=== PATIENT | male | born 1965 | race Caucasian/White ===

== ENCOUNTER 2024-07-19 08:58 | Emergency (ER) | payer MEDICAID, SELFPAY ==
[2024-07-19] VITALS (19 sets, daily range): BP systolic 114–173; BP diastolic 79–114; PULSE 84–101; RESP 12–25; TEMP 36.2–36.7; O2SAT 90–100; BMI 32.5
--- NOTE | 2024-07-19 09:42 | EKG_ITS ---
[facility] Test Date: 2024-07-19 Pat Name: LEYLA BRUNNER Department: Room: - Gender: Male Single Resource Boss: : 1965 Requested By: Vivek Hagan Order Number: [id number] Reading MD: Vivek Hagan Measurements Intervals [place] Rate: 99 P: 63 CO: 175 QRS: -57 QRSD: 114 T: 76 QT: 346 QTc: 444 Interpretive Statements SINUS RHYTHM WITH FREQUENT VENTRICULAR PREMATURE COMPLEXES LEFT AXIS DEVIATION [QRS AXIS < -30] PATTERN CONSISTENT WITH PULMONARY DISEASE MODERATE INTRAVENTRICULAR CONDUCTION DELAY [110+ ms QRS DURATION] Compared to ECG 10/22/2023 07:37:07 Ventricular premature complex(es) now present Intraventricular conduction delay now present Incomplete right bundle-branch block no longer present T-wave abnormality no longer present /store/S0/[id number]/ecg/[id number].pdf
--- NOTE | 2024-07-19 09:46 | XR_ITS ---
Examination: CT abdomen with intravenous contrast CT pelvis with intravenous contrast 2-D coronal reconstructions 2-D sagittal reconstructions Date and time of exam:July 19, 2024 1152 hours INDICATIONS: Generalized abdominal pain and blood in the stools beginning 2 days ago. CTDI: vol (mGy) 12.5 DLP: (mGycm) 878 Technique: Multiple axial sections of the abdomen and pelvis have been obtained. 64 slice high-resolution scanner used. 3 mm axial sections have been obtained, post intravenous injection 60 cc [id number] 2-D sagittal, coronal reconstructions obtained. Low dose protocols were performed. One or more of the following dose reduction techniques were used; automated exposure control, adjustment of the mA and/or KV according to patient size, use of iterative reconstruction technique. Findings: No focal liver or splenic lesions Cholelithiasis No pancreatic or adrenal mass Bilateral perinephric stranding No renal or ureteral calculi, no hydronephrosis No pericecal inflammatory change Mild diffuse wall thickening involving the colon Intact urinary bladder Mild prostatomegaly Moderate disc narrowing L5-S1 IMPRESSION: Mild diffuse nonspecific colitis pattern
[2024-07-19] MEDS: ONDANSETRON INJ 2 MG/ML INJ 2 ML 4 MG IVP (10:24)
[2024-07-19] MEDS: SODIUM CHLORIDE 0.9% 1000 ML 1,000 ML 999 ML IV (10:25)
[2024-07-19 10:28] LABS: Basophils # (Auto) 0.1 Thou/mm3 (0.0-0.2); Basophils % (Auto) 1 % (0-2.5); Eosinophils # (Auto) 0.3 Thou/mm3 (0.0-0.5); Eosinophils % (Auto) 3 % (0-10); Hematocrit 44.4 % (41.0-53.0); Hemoglobin 15.6 g/dL (13.5-16.0); Immature Granulocytes % (Auto) 0 % (0-0); Immature Granulocytes Auto 0.03 Thou/mm3 (0.00-0.00); Lymphocytes # (Auto) 1.2 Thou/mm3 (1.0-4.8); Lymphocytes % (Auto) 12 % (10-50); Mean Corpuscular HGB Conc 35.1 g/dl (31.0-37.0); Mean Corpuscular Hemoglobin 28.5 pg (25.0-35.0); Mean Corpuscular Volume 81 fL (80-100); Monocytes # (Auto) 0.8 Thou/mm3 (0.0-0.8); Monocytes % (Auto) 7 % (0-12); Neutrophils # (Auto) 7.9 Thou/mm3 (1.8-7.7); Neutrophils % (Auto) 77 % (37-80); Nucleated Red Blood Cell % 0 /100 WBC (0); Platelet Count 246 Thou/mm3 (140-440); RDW Standard Deviation 42.7 fL (35.1-43.9); Red Blood Count 5.47 Miln/mm3 (4.50-5.90); White Blood Count 10.2 Thou/mm3 (3.8-10.6)
[2024-07-19] MEDS: MORPHINE SULF INJ 10 MG/ML VIAL 4 MG IVP (10:30)
[2024-07-19] MEDS: PANTOPRAZOLE 40 MG TABLET PO (10:32)
[2024-07-19 10:56] LABS: Alanine Aminotransferase 7 U/L (10-49); Albumin, Serum 3.9 gm/dL (3.5-5.0); Albumin/Globulin Ratio 1.1 (1.2-2.2); Alkaline Phosphatase 75 U/L (46-116); Anion Gap 12 (7-16); Aspartate Amino Transferase 15 U/L (0-34); BUN/Creatinine Ratio 18 Ratio (12-20); Bilirubin,Total 0.6 mg/dL (0.3-1.2); Blood Urea Nitrogen 22 mg/dL (9-23); Calcium (Corrected) 9.1 mg/dL (8.5-10.1); Carbon Dioxide 25.4 mMol/L (20.0-31.0); Chloride 102 mMol/L (98-107); Creatinine (Component) 1.2 mg/dL (0.6-1.3); Globulin 3.5 gm/dL (2.3-3.5); Glucose 157 mg/dL (74-106); Lipase 23 U/L (12-53); Osmolality,Calculated 283 (275-295); Potassium 4.3 mMol/L (3.4-5.1); Sodium 139 mMol/L (136-145); Total Protein 7.4 gm/dL (5.7-8.2); eGFR > 60 See Note
[2024-07-19 12:16] LABS: Prothrombin Time 11.3 Seconds (9.0-12.2)
[2024-07-19 12:20] LABS: Collection Type, Urine Clean Catch; Squamous Epithelial Cell,Urine 0 /hpf (0-5)
[2024-07-19 12:26] LABS: Bilirubin,Urine Negative (Negative); Blood,Urine 1+ (Negative); Clarity,Urine Clear (Clear/Hazy); Color,Urine Lt-Yellow (Lt Yel-Yel); Glucose, Urine 4+ (Negative); Ketones,Urine 1+ (Negative); Leukocyte Esterase,Urine Negative (Negative); Nitrite,Urine Negative (Negative); PH,Urine 6.5 (5.0-7.0); Protein,Urine 3+ (Neg - Trace); RBC,Urine 13 /hpf (0-3); Specific Gravity,Urine 1.031 (1.001-1.035); Urobilinogen,Urine Negative mg/dL (0.0-1.0); WBC,Urine 1 /hpf (0-5)
--- NOTE | 2024-07-19 13:09 | PD.EDABDPN ---
ED Abdominal Pain RME/HPI General Chief Complaint: Abdominal Pain Stated complaint: BLOODY STOOL Time seen by provider: 07/19/24 09:37 Arrival date/time: 07/19/24 08:58 Limitations: no limitations RME / HPI RME / HPI narrative: 58 year old male with history of CVA, CAD s/p CABG, hypertension, diabetes, hypercholesterolemia, left BKA present to the ED BIBA from home for evaluation of abdominal pain beginning yesterday and remaining constant since. Described feeling a pressure sensation with the need to burp, worse in the epigastric region. Accompanied by nausea and vomiting. Patient additionally reports his stool is purple and mauve in color. No history of similar or eating any red vegetables. Denies any bright red blood. Denies fevers, chills, sweats, chest pain, cough, shortness of breath, diarrhea, constipation, or urinary symptoms. Patient mentioned he is on Ozempic, which he began 6 months ago, and has not noticed any negative side effects. Related Data Home Medications ?Medication ?Instructions ?Recorded ?Confirmed blood sugar diagnostic (FreeStyle 10/10/20 10/22/23 Lite Strips) blood-glucose meter (FreeStyle 10/10/20 10/22/23 [place] Lite kit) insulin glargine 100 unit/mL (3 20 unit subcut QAM 10/10/20 10/22/23 mL) subcutaneous pen (Basaglar KwikPen U-100 Insulin) lancets 28 gauge (FreeStyle 10/10/20 10/22/23 Lancets) pen needle, diabetic 31 gauge x 10/10/20 10/22/23 3/16 (BD Ultra-Fine Mini Pen Needle) clopidogrel 75 mg tablet 75 mg PO QDAY 10/02/23 10/22/23 empagliflozin 12.5 mg-metformin 1 tab PO TID 10/02/23 10/22/23 1,000 mg tablet (Synjardy) tamsulosin 0.4 mg capsule 0.4 mg PO HS 10/02/23 10/22/23 atorvastatin 40 mg tablet 40 mg PO QDAY 10/22/23 10/22/23 carvedilol 3.125 mg tablet 3.125 mg PO BID 10/22/23 10/22/23 cetirizine 10 mg capsule 10 mg PO QDAY 10/22/23 10/22/23 duloxetine 60 mg capsule,delayed 60 mg PO QDAY 10/22/23 10/22/23 release sacubitril 24 mg-valsartan 26 mg 1 tab PO BID 10/22/23 10/22/23 tablet (Entresto) Previous Rx's ?Medication ?Instructions ?Recorded metoclopramide HCl 5 mg tablet 5 mg PO BID #30 tabs 10/05/23 albuterol sulfate 90 mcg/actuation 1 puff inhalation QID #6.7 grams 10/23/23 aerosol inhaler prednisone 5 mg tablet See Taper PO QDAY #20 tabs 10/23/23 ciprofloxacin HCl 500 mg tablet 500 mg PO BID colitis #20 tabs 07/19/24 Allergies Allergy/AdvReac Type Severity Reaction Status Date / Time No Known Allergies Allergy Verified 10/05/23 13:08 Review of Systems Review of Systems Narrative Review of Systems: GEN: No fever, no chills, no weight loss EYES: No discharge, no visual changes, no pain HEENT: No ear pain, no congestion, no sore throat PULM: No shortness of breath, no cough, no congestion CV: No chest pain, no palpitations GI: +nausea, +vomiting, no diarrhea, +pain, no constipation, + mauve purple stool : No frequency, no urgency, no dysuria MUSC/SKEL: No joint pain, no back pain SKIN: No rash PSYCH: No hallucinations, no depression HEME/LYMPH: No easy bleeding or bruising tendencies NEURO: No weakness, no headache Past Medical History Past Medical History NEUROLOGIC: Positive Neurological Disorders, Cerebrovascular Accident (2023 stroke) and Transient Ischemic Attacks (TIA) CARDIAC: Positive Cardiac Disorders, Coronary Artery Disease, Hypercholesterolemia and Hypertension MUSCULOSKELETAL: Positive Musculoskeletal Disorders (amputation of leg) and Fractures ENDOCRINE: Positive Endocrine Disorders and Diabetes Mellitus Type 2 OTHER HISTORY: Positive Hospitalization Family History FAMILY HISTORY: Positive Family Cardiac Disorders Surgical History SURGICAL: Positive Cardiac Surgery, Open Heart Surgery and Amputation; Negative Endocrine Surgery, Thyroidectomy, Ear Surgery, Abdominal Surgery, Nephrectomy, Transurethral Resection, Joint Replacement, Open Reduction Internal Fixation, Arthroscopy, Neurologic Surgery, Brain Shunt or Vasectomy Social History SMOKING STATUS: Former smoker SUBSTANCE USE: does not use ED Exam General Limitations: Present no limitations General appearance: Present alert and in no apparent distress Head Head exam: Present atraumatic and normocephalic Eye Eye exam: Present normal appearance, PERRL and EOMI ENT ENT exam: Present normal exam, normal oropharynx and mucous membranes moist Neck Neck exam: Present normal inspection, full ROM and trachea midline Chest Chest inspection: Present normal inspection and symmetric chest wall rise Respiratory Respiratory exam: Present normal lung sounds bilaterally Cardiovascular Cardiovascular exam: Present regular rate, normal rhythm and normal heart sounds Abdominal Exam Abdominal exam: Present soft and normal bowel sounds Extremities Exam Extremities exam: Present full ROM and other (Left BKA) Back Exam Back exam: Present normal inspection and full ROM Neurological Exam Neurological exam: Present alert, oriented X3 and CN II-XII intact Psychiatric Psychiatric exam: Present normal affect and normal mood Skin Skin exam: Present warm, dry, intact and normal color Course Quality Measures none Orders Category Date Time Status CT Screening NOW Care 07/19/24 09:[address] Screening X1 Care 07/19/24 09:42 Completed Airconditioning Drafting Officer STAT Care 07/19/24 09:43 Completed Continuous Pulse Oximetry STAT Care 07/19/24 09:44 Completed EKG (ED ONLY) *Do not use* NOW Care 07/19/24 09:43 Completed Insert IV STAT Care 07/19/24 09:43 Completed Intake and Output Routine Care 07/19/24 09:43 Ordered NPO STAT Care 07/19/24 09:[address] abdomen pelvis w con Stat Exams 07/19/24 09:46 Completed EKG (ED Only) Stat Exams 07/19/24 09:42 Draft CBC Stat Lab 07/19/24 10:15 Completed Comprehensive Metabolic Panel Stat Lab 07/19/24 10:15 Completed Lipase Stat Lab 07/19/24 10:15 Completed Prothrombin Time with INR Stat Lab 07/19/24 10:15 Completed Urinalysis Stat Lab 07/19/24 12:14 Completed Morphine Inj Med 07/19/24 09:45 Discontinued 4 mg IVP X1 ONE Ondansetron Inj [Zofran Inj] Med 07/19/24 09:42 Discontinued 4 mg IVP Q1H PRN Pantoprazole [Protonix] Med 07/19/24 09:42 Discontinued 40 mg PO X1 ONE Sodium Chloride 0.9% 1000 ml [Ns] 1,000 ml Med 07/19/24 09:42 Discontinued IV 999 mls/hr Vital Signs Vital signs: Vital Signs Temperature 98.1 F 07/19/24 09:02 Pulse Rate 91 05/22/25 09:02 Respiratory Rate 18 07/19/24 09:02 Blood Pressure 114/79 07/19/24 09:02 Pulse Oximetry (%) 96 07/19/24 09:02 Oxygen Delivery Method Room Air 07/19/24 09:02 Pulse ox is 96% on room air which is adequate. Abdominal Pain MDM MDM Narrative MDM Narrative:: Eliane Hull am scribing for and in the presence of Dr. Howell. Patient remains clinically stable throughout the emergency department visit. We reviewed all the results, analysis, and treatment plans. Patient is amenable to discharge. Strict return precautions were outlined. Patient was discharged in stable condition. Patient data External records reviewed:: [facility] previous records (I reviewed ED visit on 10/22/2023 through 10/23/2023 for hypoxia ) and EMS form Clinical information provided by:: patient and EMS Social determinants that could affect healthcare access:: none Patient has the following chronic illnesses:: CVA, CAD s/p CABG, hypertension, diabetes, hypercholesterolemia, left BKA How is presenting disease/condition affected by chronic disease/condition?: exacerbated by Evaluation data The following diagnostics were reviewed and interpreted by me:: lab results, radiology exam(s) and EKG tracing(s) (EKG @ 10:33 AM. Sinus rhythm with frequent PVC's, rate 99, left axis deviation, no STEMI. ) Lab and/or radiology exams considered but not ordered:: None Interpretation Summary: Ordering Physician: Vivek Howell MD Date of Service: 07/19/24 Procedure(s): CT abdomen pelvis w con Accession Number(s): [id number] cc: Vivek Howell MD; Rio Lin MD; NO PRIMARY/FAMILY,PHYSICIAN~ Examination: CT abdomen with intravenous contrast CT pelvis with intravenous contrast 2-D coronal reconstructions 2-D sagittal reconstructions Date and time of exam:July 19, 2024 1152 hours INDICATIONS: Generalized abdominal pain and blood in the stools beginning 2 days ago. CTDI: vol (mGy) 12.5 DLP: (mGycm) 878 Technique: Multiple axial sections of the abdomen and pelvis have been obtained. 64 slice high-resolution scanner used. 3 mm axial sections have been obtained, post intravenous injection 60 cc [id number] 2-D sagittal, coronal reconstructions obtained. Low dose protocols were performed. One or more of the following dose reduction techniques were used; automated exposure control, adjustment of the mA and/or KV according to patient size, use of iterative reconstruction technique. Findings: No focal liver or splenic lesions Cholelithiasis No pancreatic or adrenal mass Bilateral perinephric stranding No renal or ureteral calculi, no hydronephrosis No pericecal inflammatory change Mild diffuse wall thickening involving the colon Intact urinary bladder Mild prostatomegaly Moderate disc narrowing L5-S1 IMPRESSION: Mild diffuse nonspecific colitis pattern Dictated By: Rio Lin MD Signed By: <Electronically signed by Rio Lin MD in OV> 07/19/24 1216 Medications / Prescriptions Medications or Prescriptions considered but not ordered:: None Medication administrations:: Medication Administration History Discontinued Medications Sodium Chloride (Ns) 1,000 mls @ 999 mls/hr IV .Q1H1M ONE Stop: 07/19/24 10:42 Last Infusion: 07/19/24 11:33 Dose: Infused Documented By: Admin: 07/19/24 10:25 Dose: 999 mls/hr Documented By: CG Morphine Sulfate (Morphine Sulf Inj 10 Mg/Ml Vial) 4 mg IVP X1 ONE Stop: 07/19/24 09:46 Last Admin: 07/19/24 10:30 Dose: 4 mg Documented By: CG Ondansetron HCl (Ondansetron Inj 2 Mg/Ml Inj 2 Ml) 4 mg IVP Q1H PRN PRN Reason: PERSISTENT NAUSEA OR VOMITING Last Admin: 07/19/24 10:24 Dose: 4 mg Documented By: ARIA Pantoprazole Sodium (Pantoprazole 40 Mg Tablet) 40 mg PO X1 ONE Stop: 07/19/24 09:43 Last Admin: 07/19/24 10:32 Dose: 40 mg Documented By: CG See above Consultations Consultation(s) initiated? (list below): Yes Consultation #1 (Physician, Specialty, Details): I spoke with GI Dr. Gonzalez. Discussed patients PMHx, HPI, ED course, exam findings, labs, and radiology results. Reports patient can be discharged home with outpatient antibiotics and follow up with him in his office in 3-4 days. Time: 13:00 Diagnosis Differential diagnosis abdominal pain: abdominal pain, calculus of kidney, constipation and small bowel obstruction Most likely diagnosis given after review of the tests above:: Colitis Admission Indicated Admission indicated?: not indicated Admission Request Was there a request for admission?: No Disposition Plan Disposition Plan: Discharge Discharge Attestation Discharge Attestation: The patient and all family members were given an opportunity to ask questions and understood the discharge instructions. Discharge instructions specifically effects, indications for sooner follow up or return to the emergency department, and the expected course of current diagnosis. Patient condition: Stable Discharge Plan Plan Patient Disposition: HOME (Self Care) Prescriptions/Referrals Prescriptions/Med Rec: New ciprofloxacin HCl 500 mg tablet 500 mg PO BID MDD 2 Qty: 20 0RF No Action (DME) pen needle, diabetic [BD Ultra-Fine Mini Pen Needle] 31 gauge x 3/16 needle Patient Comments: USE DIRECTED ONCE A DAY Rx Instructions: use with basaglar pen insulin glargine [Basaglar KwikPen U-100 Insulin] 100 unit/mL (3 mL) insulin pen 20 unit SUBCUT QAM Patient Comments: INJECT 20 UNITS UNDER THE SKIN EVERY DAY WILL LAST 75 DAY (DME) lancets [FreeStyle Lancets] 28 gauge misc Patient Comments: USE UP TO 3 TIMES A DAY Rx Instructions: check blood sugar subcutaneously once a day (DME) FreeStyle Lite Strips Strip Patient Comments: TEST UP TO 3 TIMES A DAY DIRECTED Rx Instructions: Test once a day (DME) blood-glucose meter [FreeStyle [place] Lite] Kit Patient Comments: USE DIRECTED Rx Instructions: check blood sugar subcutaneoulsy once a day tamsulosin 0.4 mg capsule 0.4 mg PO HS Patient Comments: TAKE 1 CAPSULE BY MOUTH DAILY AT BEDTIME Synjardy 12.5-1,000 mg tablet 1 tab PO TID Patient Comments: TAKE 1 TABLET BY MOUTH TWICE DAILY WITH MEALS Rx Instructions: with meals clopidogrel 75 mg tablet 75 mg PO QDAY Patient Comments: TAKE 1 TABLET BY MOUTH DAILY metoclopramide HCl 5 mg tablet 5 mg PO BID Qty: 30 0RF atorvastatin 40 mg Tablet 40 mg PO QDAY carvedilol 3.125 mg Tablet 3.125 mg PO BID Rx Instructions: must administer with a meal/food duloxetine 60 mg Capsule,Delayed Release(Dr/Ec) 60 mg PO QDAY cetirizine 10 mg Capsule 10 mg PO QDAY Entresto 24-26 mg Tablet 1 tab PO BID prednisone 5 mg tablet See Taper PO QDAY Qty: 20 0RF Taper: Prednisone Taper 20 mg DAILY for 2 Days and 0 Hour 10 mg DAILY for 2 Days and 0 Hour 5 mg DAILY for 7 Days and 0 Hour albuterol sulfate 90 mcg/actuation HFA aerosol inhaler 1 puff inhalation QID Qty: 6.7 0RF Referrals: Ping Gonzalez MD [Physician] - In 1 week Problem List Clinical Impression: Colitis Patient/Caregiver Discharge Instructions Education Materials: Understanding Colitis Additional Instructions: Follow-up with GI Dr. Gonzalez within 3 to 5 days for recheck. You can return to the emergency department sooner if symptoms worsen or if you notice any new, concerning issues. Print Language: Austrian Stand Alone Forms: Laura Award Info., Patient Portal Info Letter
== END 2024-07-19 14:33 | disposition home or self-care (01) ==
PROVIDERS: Emergency Provider Family Medicine
DX: K52.9 Noninfective gastroenteritis and colitis, unspecified (principal); I49.3 Ventricular premature depolarization; I45.89 Other specified conduction disorders
CPT/HCPCS: 36415; 74177; 80053; 81001; 83690; 85025; 85610; 93005; 96361; 96374; 99285; A4649; J2270; J2405; J7030; Q9967; A9270